=== PATIENT | male | born 1975 | race Caucasian/White ===

== ENCOUNTER → 2025-03-17 | Outpatient (CLI) | payer MEDICAID, SELFPAY ==
--- NOTE | 2025-03-17 10:34 | MRI_ITS ---
PROCEDURE: LOWER EXT JOINT ONLY (ROUTINE) 03/17/2025 REASON FOR EXAM: PAIN, RULE OUT MENISCUS TEAR Fell onto patella November 2024. TECHNIQUE: Procedure Code: MRILEJ Modality: MR Procedure: MRI of the right knee without contrast. Multiplanar and multisequence images were obtained without IV contrast administration. COMPARISON: COMPARISON : Right knee study of 02/26/2025. FINDINGS: No acute osseous signal changes seen. No joint effusion is noted. No Oliveira's or popliteal cyst is seen. Degenerative changes are seen involving the lateral and patellofemoral compartments Mild degenerative changes are seen of the patellofemoral articulation, with mild irregular articular cartilage thinning of the articular aspect of the lateral femoral condyle. The lateral compartment demonstrates mild to moderately severe articular cartilage thinning of the articular aspect of the lateral femoral condyle, particularly the mid to medial portion. Cruciate and collateral ligaments appear intact. Visualized extensor tendons appear intact. An oblique tear of the posterior horn of the medial meniscus is seen, extending to the tibial surface. No lateral meniscal tear is seen. MRI/Lower Ext Joint Only (Routine) IMPRESSION: 1. Medial meniscal tear. 2. Degenerative changes as noted. Reading Location: [id number]
== END | disposition home or self-care (01) ==
LOC: MRI 10:33
PROVIDERS: PCP Nurse Practitioner Family; Referring Provider Orthopaedic Surgery; Visit Provider Orthopaedic Surgery
DX: M25.561 Pain in right knee (principal)
CPT/HCPCS: 73721